=== PATIENT | female | born 1980 | race Caucasian/White ===

== ENCOUNTER 2022-02-23 11:57 | Emergency (ER) | payer OTHER, SELFPAY ==
--- NOTE | 2022-02-23 12:02 | ED.LOWEXIN ---
HPI - Extremity Injury (Lower) General Chief Complaint: Extremity Injury, Lower Stated Complaint: right ankle pain Time Seen by Provider: 02/23/22 12:03 Source: patient and RN notes reviewed History of Present Illness HPI Narrative: Patient is a 41-year-old female who presents the urgent care with complaints of right ankle pain and swelling. Patient states that hurts worse with flexion and weightbearing. Patient states is been ongoing for approximately 2 weeks and seems to have bothered her a little bit more in the last couple days. 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 Denies of any injury or rolling of the ankle. Patient has not done anything [id number] for her pain. No other acute complaints. No acute distress noted. Patient aware of the plan of care. Some parts of this dictation were generated by voice recognition software and may contain typographical and/or grammatical inaccuracies. Related Data Home Medications Medication Instructions Recorded Confirmed dulaglutide 0.75 mg/0.5 mL mg subcut 02/23/22 [facility] fluoxetine 20 mg capsule mg 02/23/22 pioglitazone 15 mg tablet mg 02/23/22 valacyclovir 500 mg tablet mg 02/23/22 Allergies Allergy/AdvReac Type Severity Reaction Status Date / Time morphine AdvReac Nausea and Verified 02/23/22 12:13 Vomiting Review of Systems Review of Systems: CONSTITUTIONAL: Denies fever, chills, or sweats. EYES: Denies visual changes, redness, or discharge. ENT: Denies rhinorrhea, congestion, sore throat, or otalgia. CARDIOVASCULAR: Denies chest pain, palpitations, or edema. RESPIRATORY: Denies cough or dyspnea. GASTROINTESTINAL: Denies abdominal pain, nausea, vomiting, or diarrhea. GENITOURINARY: Denies dysuria or hematuria. SKIN: Denies rash or itching. MUSCULOSKELETAL: Reports of right ankle pain and swelling NEUROLOGIC: Denies headache, numbness, or weakness. All other systems reviewed are negative, except as documented in HPI. PMFSH Comments At the time of my signature, I reviewed and agree with the nursing past medical, surgical, social, and family history. There is no relevant family history pertinent to the patient complaint. Exam Narrative: GENERAL: This is a well-nourished, well-developed patient, in no apparent distress. HEAD: normocephalic, atraumatic. EYES: PERRL. Sclera clear/white. Vision is grossly intact. EARS: External ears normal NOSE: External nose normal with no obvious nasal discharge, nares without redness, no rhinorrhea. THROAT: Mucous membranes moist NECK: Neck supple SKIN: warm, intact with no suspicious lesions or rash, good texture and turgor. NEURO: awake, alert, and oriented to person, place and time. There were no obvious focal neurologic abnormalities. EXTREMITIES: Very mild edema noted to the lateral right malleolus with positive strong right pedal pulse and capillary refill less than 2 seconds Course Course Level of Care: Express Care Visit Vital Signs Vital signs: Vital Signs Temperature 96.5 F L 02/23/22 12:04 Pulse Rate 84 02/23/22 12:04 Respiratory Rate 16 02/23/22 12:04 Blood Pressure 134/86 02/23/22 12:04 Pulse Oximetry 99 02/23/22 12:04 Oxygen Delivery Room Air 02/23/22 12:04 Temperature 96.5 F L 02/23/22 12:04 Pulse Rate 84 02/23/22 12:04 Respiratory Rate 16 02/23/22 12:04 Blood Pressure 134/86 02/23/22 12:04 Pulse Oximetry 99 02/23/22 12:04 Oxygen Delivery Room Air 02/23/22 12:04 Reviewed MDM - Extremity Injury (Lower) MDM Narrative Medical decision making narrative: Advised the patient to keep the Kalyan wrap on the foot and wear supportive shoe. Use Tylenol/ibuprofen as needed for pain or discomfort. Keep the foot elevated with ice. Try to stay off the foot as much as possible for the next couple days to allow for healing and decrease swelling. Avoid any strenuous activit
[2022-02-23 12:04] VITALS: BP 134/86; PULSE 84; RESP 16; TEMP 35.8; O2SAT 99
== END 2022-02-23 12:20 | disposition home or self-care (01) ==
PROVIDERS: Emergency Provider Nurse Practitioner Family
DX: S93.401A Sprain of unspecified ligament of right ankle, initial encounter (principal); S96.911A Strain of unspecified muscle and tendon at ankle and foot level, right foot, initial encounter; X58.XXXA Exposure to other specified factors, initial encounter; E11.9 Type 2 diabetes mellitus without complications; E03.9 Hypothyroidism, unspecified; Z98.84 Bariatric surgery status
CPT/HCPCS: 99212; G0463